=== PATIENT | male | born 1965 | race Hispanic/Latino ===

== ENCOUNTER 2023-08-28 14:17 | Emergency (ER) | payer MEDICARE ==
[~2023-08-28] VITALS: Ht 172.7 cm; Wt 83.9 kg
[2023-08-28 14:30] VITALS: PULSE 96; RESP 16; TEMP 97.9; O2SAT 99
[2023-08-28] MEDS ORDERED: SINGULAIR10 MG PO (15:09)
[2023-08-28] MEDS ORDERED: MUCINEX DM ER1 EACH PO (15:09)
[2023-08-28] MEDS ORDERED: ZYRTEC10 MG PO (15:10)
== END 2023-08-28 15:20 | disposition home or self-care (01) ==
LOC: FSED 14:57
DX: U07.1 COVID-19 (principal)
CPT/HCPCS: 0223U; 87400; 99282

== ENCOUNTER → 2023-09-17 | Outpatient (REF) | payer MEDICARE ==
[~2023-09-17] MED LIST: MUCINEX DM ER1 EACH PO; SINGULAIR10 MG PO; ZYRTEC10 MG PO
== END ==
LOC: US 15:25
PROVIDERS: ATTEND Family Medicine
DX: D69.6 Thrombocytopenia, unspecified (principal)
CPT/HCPCS: 76705

== ENCOUNTER 2024-01-27 09:49 | Inpatient (IN) | payer MEDICARE ==
[2024-01-27] VITALS (25 sets, daily range): BP systolic 89–139; BP diastolic 64–89; PULSE 69–98; RESP 12–30; TEMP 97.8–98.6; O2SAT 87–98
[~2024-01-27] VITALS: Ht 172.7 cm; Wt 83.9 kg
[2024-01-27] MEDS: ASPIRIN 325 MG TAB PO ONE (11:53)
[2024-01-27] MEDS ORDERED: METFORMIN HCL500 MG PO (14:17)
[2024-01-27] MEDS ORDERED: LIPITOR20 MG PO (14:17)
[2024-01-27] MEDS ORDERED: INFLUENZA VIRUS VAC SPLIT INJ 0.5 ML SYR IM SCH (14:18)
[2024-01-27] MEDS: IOPAMIDOL 370 MG/ML 100 ML INFUS..BTL INJ ONE (15:59)
[2024-01-27] MEDS: NITROGLYCERIN/D5W 200 MCG/ML 0 ML ONE (15:59)
[2024-01-27] MEDS: VERAPAMIL HCL 2.5 MG/ML 2 ML VIAL ONE (15:59)
[2024-01-27] MEDS: HEPARIN SOD/SOD CHLORIDE 2,000 ML ONE (15:59)
[2024-01-27] MEDS: HEPARIN SOD (PORCINE) 1000 UNIT/ML 30ML ONE (15:59)
[2024-01-27] MEDS: LIDOCAINE HCL 2% LOCAL 20 ML VIAL ONE (15:59)
[2024-01-27] MEDS: BIVALRIUDIN 250 MG/VIAL VIAL IV ONE (16:00)
[2024-01-27] MEDS: FENTANYL CITRATE/PF 100MCG/2 ML INJ ONE (16:00)
[2024-01-27] MEDS: MIDAZOLAM HCL 2 MG/2 ML VIAL ONE (16:00)
[2024-01-27] MEDS: SODIUM CHLORIDE 0.9% 1000ML 1,000 ML ONE (16:01)
[2024-01-27] MEDS: SODIUM CHLORIDE 0.9% 1000ML 1,000 ML IV SCH (16:28)
[2024-01-27] MEDS: ONDANSETRON HCL INJ 2MG/ML 2ML 2 MG/ML VIAL IV PRN (16:28)
[2024-01-27] MEDS: METOPROLOL TARTRATE 25 MG TAB PO SCH (16:29)
[2024-01-27] MEDS: Morphine 4mg INJECTION 4 MG/ML INJ IV PRN (16:29)
[2024-01-27] MEDS: ATORVASTATIN 40 MG TAB PO SCH (21:06)
[2024-01-28] VITALS (34 sets, daily range): BP systolic 92–143; BP diastolic 51–100; PULSE 60–156; RESP 12–30; TEMP 97.7–98.2; O2SAT 89–99
[2024-01-28] MEDS ORDERED: MELATONIN 3 MG TAB PO PRN (05:45)
[2024-01-28] MEDS ORDERED: ACETAMINOPHEN 325 MG TAB PO PRN (05:45)
[2024-01-28] MEDS ORDERED: HYDRALAZINE HCL 20 MG/ML VIAL IV PRN (05:45)
[2024-01-28] MEDS ORDERED: GUAIFENESIN/DEXTROMETHORPHAN LIQD 5 ML UDC PO PRN (05:45)
[2024-01-28] MEDS ORDERED: MAGNESIUM/ALUMINUM/SIMETHICONE 30 ML UDC PO PRN (05:45)
[2024-01-28] MEDS ORDERED: DEXTROSE 50% SYRINGE 50 ML IV PRN (05:45)
[2024-01-28] MEDS ORDERED: DOCUSATE SODIUM 100 MG CAP PO PRN (05:45)
[2024-01-28 07:05] LABS: BASOPHILS % 0.7 % (0.0-1.0); EOSINOPHILS # (AUTO) 0.1 (0.0-0.4); EOSINOPHILS % 2.6 % (0.0-6.0); HEMATOCRIT 43.2 % (38.2-49.6); HEMOGLOBIN 13.2 g/dL (14.0-18.0); LYMPHOCYTES # (AUTO) 1.1 (1.0-3.2); LYMPHOCYTES % 21.1 % (18.0-39.1); MEAN CORPUSCULAR HEMOGLOBIN 28.2 pg (28-32); MEAN CORPUSCULAR HGB CONC 30.6 g/dL (31-35); MEAN CORPUSCULAR VOLUME 92.3 fL (81-99); MONOCYTES # (AUTO) 0.5 (0.2-0.8); MONOCYTES % 9.3 % (4.4-11.3); NEUTROPHILS # (AUTO) 3.5 (2.1-6.9); NEUTROPHILS % 65.9 % (38.7-80.0); PLATELET COUNT 94 x10e3/uL (140-360); RED BLOOD COUNT 4.68 x10e6/uL (4.3-5.7); WHITE BLOOD COUNT 5.36 x10e3/uL (4.8-10.8)
[2024-01-28] MEDS: INSULIN REGULAR, HUMAN 100 UNIT/1 ML SQ SCH (07:30)
[2024-01-28 07:34] LABS: ALBUMIN 3.2 g/dL (3.5-5.0); ALBUMIN/GLOBULIN RATIO 1.5 (0.8-2.0); ANION GAP 12.8 mmol/L (8-16); CALCIUM 8.1 mg/dL (8.4-10.2); CREATININE, SERUM 0.72 mg/dL (0.72-1.25); POTASSIUM 3.8 mmol/L (3.5-5.1); TOTAL PROTEIN 5.3 g/dL (6.5-8.1)
[2024-01-28] MEDS: MULTIVITAMINS/MINERALS TAB PO SCH (08:09)
[2024-01-28] MEDS: ASPIRIN 325 MG TAB PO SCH (08:10)
[2024-01-28] MEDS ORDERED: PNEUMOCOCCAL VACCINE POLYVALENT 23 MCG/0.5 ML VIAL IM SCH (09:00)
[2024-01-28 09:11] LABS: CHOL/HDL RATIO 3.7 (3.9-4.7)
[2024-01-29] VITALS (43 sets, daily range): BP systolic 88–136; BP diastolic 52–99; PULSE 62–111; RESP 13–28; TEMP 97.5–98.8; O2SAT 86–97
[2024-01-29] MEDS ORDERED: LOPRESSOR25 MG PO (20:18)
[2024-01-29] MEDS ORDERED: ATORVASTATIN CA40 MG PO (20:18)
[2024-01-29] MEDS ORDERED: HUMULIN R100 UNIT/2 SQ (20:18)
[2024-01-29] MEDS ORDERED: ASPIRIN325 MG PO (20:18)
== END 2024-01-29 21:34 | disposition other institution (70) | DRG 280 ==
LOC: FSED 10:02 → ERHOLD 12:45 → ICU 13:31
PROVIDERS: ADMIT Internal Medicine; ATTEND Internal Medicine
PROC: 4A023N7 Measurement of Cardiac Sampling and Pressure, Left Heart, Percutaneous Approach (ICD-10-PCS; principal; 2024-01-27)
PROC: B2111ZZ Fluoroscopy of Multiple Coronary Arteries using Low Osmolar Contrast (ICD-10-PCS; 2024-01-27)
PROC: B31C1ZZ Fluoroscopy of Bilateral External Carotid Arteries using Low Osmolar Contrast (ICD-10-PCS; 2024-01-27)
DX: I21.4 Non-ST elevation (NSTEMI) myocardial infarction (principal); I50.21 Acute systolic (congestive) heart failure; I25.5 Ischemic cardiomyopathy; I25.10 Atherosclerotic heart disease of native coronary artery without angina pectoris; I11.0 Hypertensive heart disease with heart failure; I45.10 Unspecified right bundle-branch block; E11.9 Type 2 diabetes mellitus without complications; E78.00 Pure hypercholesterolemia, unspecified; I65.23 Occlusion and stenosis of bilateral carotid arteries; R53.81 Other malaise; E66.3 Overweight; Z68.28 Body mass index [BMI] 28.0-28.9, adult; Z79.84 Long term (current) use of oral hypoglycemic drugs; Z83.3 Family history of diabetes mellitus
CPT/HCPCS: 36415; 71046; 76937; 80048; 80053; 80061; 82948; 83880; 84484; 85025; 93306; 93458; 94799; 99152; 99153; 99252; 99284; C1769; C1887; C1894; J0583; J1644; J2003; J2250; J2270; J2405; J7030; Q9967